=== PATIENT | female | born 1970 | race Caucasian/White ===

== ENCOUNTER → 2019-01-19 | Outpatient (CLI) | payer OTHER | LOC: MC.RAD 11:44 | DX: Z12.31 Encounter for screening mammogram for malignant neoplasm of breast (principal); Z98.82 Breast implant status ==

== ENCOUNTER 2019-02-02 07:27 | Day surgery (SDC) | payer OTHER ==
[~2019-02-02] VITALS: Ht 177.8 cm; Wt 70.1 kg
[2019-02-02 07:51] VITALS: BP 118/72; PULSE 78; TEMP 98
[2019-02-02 09:45] VITALS: BP 106/69; PULSE 80; TEMP 98.3
--- NOTE | 2019-02-02 09:45 | NUR ---
Patient arrives back to [facility] [place], denies pain or nausea. Patient ambulates from cart to chair with standby assist x1 without any complications. Patient monitor applied, vitals stable. Patient's friend brought to chair side and patient given water and peanut butter.
[2019-02-02 10:00] VITALS: BP 103/77; PULSE 71
--- NOTE | 2019-02-02 10:00 | NUR ---
Patient reports she is doing and feeling good. Denies pain or nausea. Vitals stable.
[2019-02-02 10:15] VITALS: BP 101/68; PULSE 68
--- NOTE | 2019-02-02 10:15 | NUR ---
Dismissal instructions gone over with patient and patient's friend. Both verbalize understanding and all questions answered.
--- NOTE | 2019-02-02 10:25 | NUR ---
Patient discharged to private vehicle via wheelchair without any complications. Patient leaves thanking staff for services.
[2019-02-02 11:00] VITALS: BP 107/68; PULSE 82
== END 2019-02-02 10:25 | disposition home or self-care (01) ==
LOC: SDCO 07:27
DX: Z12.11 Encounter for screening for malignant neoplasm of colon (principal); K64.0 First degree hemorrhoids
CPT/HCPCS: J2250; J2405; J3010; J7030

== ENCOUNTER → 2021-07-04 | Outpatient (CLI) | payer OTHER | LOC: MC.RAD 12:57 | DX: Z12.31 Encounter for screening mammogram for malignant neoplasm of breast (principal) ==